=== PATIENT | male | born 1975 | race Caucasian/White ===

== ENCOUNTER 2019-03-15 18:44 | Emergency (ER) | payer MEDICAID, SELFPAY ==
--- NOTE | ~2019-03-15 | XR_ITS ---
EXAMINATION: XR lumbar spine 2-3V EXAM DATE: 03/15/2019 20:25 INDICATION: Left-sided low back pain. TECHNIQUE: Lumber spine frontal, lateral, lateral L5-S1 projections for interpretation. There is no prior study for comparison. FINDINGS: Straightening of normal lumbar lordosis could indicate muscle spasm. The vertebral bodies are aligned in the AP dimension. Vertebral body and disc heights are well-maintained. There is mild lumbar facet arthropathy. Sacrum, sacroiliac joints, sacral arcuate lines are intact. Paraspinal sof t tissue is unremarkable. IMPRESSION: 1. Lumbar straightening, possible muscular spasm. 2. Mild facet arthropathy. Reviewed, dictated and finalized at location A. ISTICAL TYPIST
[2019-03-15 19:09] VITALS: BP 127/94; PULSE 107; RESP 18; TEMP 37.9; O2SAT 98
--- NOTE | 2019-03-15 20:00 | ED_ITS ---
I attest that this documentation has been prepared under the direction and in the presence of Marla Starr MD. Sonia Hirsch Scribe 03/15/19;20:00 HPI - General Adult General Chief complaint: Back Pain/Injury Stated complaint: BACK PAIN Time Seen by Provider: 03/15/19 19:58 Related Data Allergies Allergy/AdvReac Type Severity Reaction Status Date / Time penicillin V Allergy Mild Rash Verified 03/15/19 19:14 fentanyl AdvReac Unknown Unknown Verified 03/15/19 19:14 Course Vital Signs Vital signs: Vital Signs Temperature 37.9 C H 03/15/19 19:09 Pulse Rate 107 H 03/15/19 19:09 Respiratory Rate 18 03/15/19 19:09 Blood Pressure 127/94 H 03/15/19 19:09 Pulse Oximetry 98 03/15/19 19:09 Temperature 37.9 C H 03/15/19 19:09 Pulse Rate 107 H 03/15/19 19:09 Respiratory Rate 18 03/15/19 19:09 Blood Pressure 127/94 H 03/15/19 19:09 Pulse Oximetry 98 03/15/19 19:09 Medical Decision Making Vital Signs Vital Signs: Vital Signs Temperature 37.9 C H 03/15/19 19:09 Pulse Rate 107 H 03/15/19 19:09 Respiratory Rate 18 03/15/19 19:09 Blood Pressure 127/94 H 03/15/19 19:09 Pulse Oximetry 98 03/15/19 19:09 Temperature 37.9 C H 03/15/19 19:09 Pulse Rate 107 H 03/15/19 19:09 Respiratory Rate 18 03/15/19 19:09 Blood Pressure 127/94 H 03/15/19 19:09 Pulse Oximetry 98 03/15/19 19:09
--- NOTE | 2019-03-15 20:03 | ED.BACK ---
HPI - Back Pain/Injury General Chief Complaint: Back Pain/Injury Stated Complaint: BACK PAIN Time Seen by Provider: 03/15/19 19:58 Source: patient Mode of arrival: ambulatory Limitations: no limitations History of Present Illness HPI Narrative: The pt is a 43 y/o male who presents to the ED with c/o lower back pain that began 2 days ago. The pt states that he was lifting a fridge 2 days ago and hurt his lower back. He went home after the incident and put heat on the injury. He has been having trouble walking and standing up and neither the heat thwerapy nor Tylenol has relieved his sx. His back pain is described as a dull throbbing pain with shooters into his lt leg. It is rated an 8/10 and radiates to his lt hip, lt thigh, and lt knee. His pain is worsened with coughing or movement. The pt denies dysuria or constipation. He has been shuffling and using a cane to ambulate. MD elicited complaint: back pain Onset (ago): day(s) (2) Quality: other (dull throbbing with shooters into lt leg) Location: lumbar spine Radiation: other (lt hip, lt thigh, lt knee) Exacerbating factors: movement and other (coughing) Relieving factors: none Context: while lifting Associated symptoms: denies other symptoms Related Data Allergies Allergy/AdvReac Type Severity Reaction Status Date / Time penicillin V Allergy Mild Rash Verified 03/15/19 19:14 fentanyl AdvReac Unknown Unknown Verified 03/15/19 19:14 Review of Systems Review of Systems: All systems reviewed & are unremarkable except as noted in HPI and below Gastrointestinal: Gastrointestinal: Denies constipation Genitourinary: Genitourinary: Denies dysuria Musculoskeletal: Musculoskeletal: Reports back pain (lower) [facility] Past Medical History Medical History (Updated 03/16/19 @ 14:20 by Marla Starr MD) Angina at rest Anxiety Back pain Salivary gland calculi lt, with removal of gland Slipped intervertebral disc Varices, scrotum Surgical History Surgical History (Updated 03/15/19 @ 20:18 by Sonia Hirsch) History of mandibular surgery Hx of appendectomy Social History Social History (Updated 03/15/19 @ 20:18 by Sonia Hirsch) Smoking status: Former smoker Tobacco type: e-cigarettes Additional smoking assessment comments: Quit smoking cigarettes 2 years ago and now smokes a vape Exam Const: General: no acute distress and well developed Orientation/consciousness: oriented to person, oriented to place, oriented to time and patient oriented x3 Other: difficulty with ambulation due to pain HENMT: Head: normocephalic Ears: external ears normal General nose exam: Normal external nose present Eyes: General: appearance normal, both eyes and all related structures Conjunctivae: conjunctivae normal Neck: Neck: normal visual inspection and full ROM Chest: Chest palpation & inspection: normal inspection of the chest and no tenderness Resp: Effort & Inspection: normal respiratory effort Auscultation: clear to auscultation bilaterally Cardio: Rate: regular rate Rhythm: regular rhythm GI: GI Palp: No abdominal tenderness and Yes Soft to palpation Skin: General skin exam: normal color and turgor normal Neuro: General: oriented to person, oriented to place, oriented to time and patient oriented x3 Cognition (Neuro): normal cognition Extrem: General: normal to inspection, full ROM and no pedal edema Psych: Appearance: grossly normal Mental Status: mental status grossly normal Affect: normal affect Course Vital Signs Vital signs: Vital Signs Temperature 37.9 C H 03/15/19 19:09 Pulse Rate 107 H 03/15/19 19:09 Respiratory Rate 18 03/15/19 19:09 Blood Pressure 127/94 H 03/15/19 19:09 Pulse Oximetry 98 03/15/19 19:09 Temperature 37.9 C H 03/15/19 19:09 Pulse Rate 90 03/15/19 22:05 Respiratory Rate 20 03/15/19 22:05 Blood Pressure 136/88 03/15/19 22:05 Pulse Oximetry 99 03/15/19 22:05 MDM - Back Pain/Injury
[2019-03-15] MEDS: CYCLOBENZAPRINE HCL 10 MG TABLET PO (20:34)
[2019-03-15 20:59] LABS: Basophils Absolute Auto 0.1 K/mm3 (0.0-0.1); Basophils Percent Auto 1.2 % (0.2-1.2); Eosinophils Absolute Auto 0.1 K/mm3 (0-0.3); Eosinophils Percent Auto 1.2 % (0-4.4); Hematocrit 46.3 % (42.0-52.0); Hemoglobin 15.5 g/dL (14.0-18.0); Immature Granulocyte Absolute 0.02 K/mm3 (0.00-0.031); Immature Granulocyte Percent A 0.2 % (0-0.5); Lymphocytes Absolute Auto 2.18 K/mm3 (0.9-3.2); Lymphocytes Percent Auto 24.3 % (18.3-44.2); Mean Corpuscular HGB Conc 33.5 g/dl (32-36); Mean Corpuscular Hemoglobin 29.3 pg (26-34); Mean Corpuscular Volume 87.5 fl (80-100); Mean Platelet Volume 10.8 fl (7.4-10.4); Monocytes Absolute Auto 0.7 K/mm3 (0.1-0.6); Monocytes Percent Auto 8.1 % (2.6-8.5); Neutrophils Absolute Auto 5.8 K/mm3 (1.3-6.7); Platelet Count Result 322 k/mm3 (150-375); Red Blood Count 5.29 M/mm3 (4.6-6.20); Red Cell Distribution Width 12.6 % (11.5-14.5)
[2019-03-15 21:00] LABS: Add Urine Microscopic? NO; Appearance Urine Clear (Clear); Bilirubin Urine Negative (Negative); Blood Urine Negative (Negative); Color Urine Yellow (Yellow); Glucose Urine UA Negative (Negative); Ketones Urine Negative (Negative); Leukocyte Esterase Ur Negative LEU/UL (Negative); Nitrate Urine Negative (Negative); Protein Urine Negative (Negative); Specific Grav Ur 1.023 (1.001-1.035); Urobilinogen Urine Negative mg/dL (<2.0)
[2019-03-15 21:11] LABS: Blood Urea Nitrogen 21 mg/dL (9-20); CRP 0.8 mg/dL (<1.0); Calcium 10.1 mg/dL (8.4-10.2); Carbon Dioxide 25 mmol/L (22-30); Chloride 100 mmol/L (98-107); Estimated CRCL calculation 82 ml/min; Estimated Glomerular Filt Rate > 60; Glucose 90 mg/dL (75-110); Potassium 3.8 mmol/L (3.4-5.0); Sodium 137 mmol/L (137-145)
[2019-03-15 21:27] LABS: Erythrocyte Sedimentation Rate 15 mm/hr (0-20)
[2019-03-15 21:51] VITALS: BP 143/89; PULSE 74; RESP 15; O2SAT 95
[2019-03-15 22:05] VITALS: BP 136/88; PULSE 90; RESP 20; O2SAT 99
== END 2019-03-15 22:05 | disposition home or self-care (01) ==
PROVIDERS: Emergency Provider Emergency Medicine; PCP Family Medicine
DX: M54.42 Lumbago with sciatica, left side (principal); F17.290 Nicotine dependence, other tobacco product, uncomplicated; X50.9XXA Other and unspecified overexertion or strenuous movements or postures, initial encounter
CPT/HCPCS: 36415; 72100; 80048; 81003; 85025; 85652; 86140; 99283; A9270

== ENCOUNTER 2019-03-30 15:06 | Outpatient (CLI) | payer MEDICAID, SELFPAY ==
--- NOTE | ~2019-03-30 | CT_ITS ---
EXAMINATION: CT sinus wo con DATE: 03/30/2019 15:26 INDICATION: Chronic congestion. Chronic sinusitis. TECHNIQUE: Computed tomography (CT) of the paranasal sinuses was performed without contrast. Iterativ e reconstruction technique was employed. Exam dose: 236.84 mGy-cm total exam DLP. COMPARISON: None FINDINGS: There is leftward bowing of the nasal septum. There is right interlamellar cell and vee bullosa of middle nasal turbinate. There is left middle nasal turbinate interlamellar cell. The nasal turbinates are prominent in size bilaterally. The ostiomeatal units are patent bilaterally. The paranasal sinuses are normally developed and aerated. There is minimal mucoperiosteal thickening along the anterolateral aspect of the right maxillary sinus. No fluid levels or mass densities. The mastoid air cells are normally developed and aerated bilaterally. Bilateral middle and inner ear normal apparatus. IMPRESSION: Leftward bowing of nasal septum Vee bullosa and interlamellar cell of right middle nasal turbinate Interlamellar cell of left nasal turbinate Bilateral turbinate soft tissue swelling Minimal mucoperiosteal thickening of the right maxillary sinus; the paranasal sinuses, ostiomeatal un its and mastoid air cells otherwise are normal Reviewed, dictated and finalized at Location A. Reviewed, dictated and finalized at location B. DCAST CHECKER IMPRESSION: Leftward bowing of nasal septum Vee bullosa and interlamellar cell of right middle nasal turbinate Interlamellar cell of left nasal turbinate Bilateral turbinate soft tissue swelling Minimal mucoperiosteal thickening of the right maxillary sinus; the paranasal s inuses, ostiomeatal units and mastoid air cells otherwise are normal
== END 2019-03-30 15:07 | disposition home or self-care (01) ==
PROVIDERS: PCP Family Medicine; Visit Provider Otolaryngology
DX: J32.9 Chronic sinusitis, unspecified (principal); J34.2 Deviated nasal septum
CPT/HCPCS: 70486

== ENCOUNTER 2019-03-31 08:32 | Outpatient (CLI) | payer MEDICAID, SELFPAY | END 2019-03-31 08:33 | disposition home or self-care (01) | PROVIDERS: PCP Family Medicine; Referring Provider Otolaryngology; Visit Provider Otolaryngology | DX: H90.3 Sensorineural hearing loss, bilateral (principal) | CPT/HCPCS: 92557; 92567 ==

== ENCOUNTER 2019-04-17 16:11 | Outpatient (CLI) | payer MEDICAID, SELFPAY ==
--- NOTE | ~2019-04-17 | MR_ITS ---
EXAMINATION: MR IAC wo/w con DATE: 04/17/2019 17:23 INDICATION: Asymmetric right-sided hearing loss. TECHNIQUE: Magnetic resonance imaging (MRI) of the brain, brainstem, and internal auditory canals was performed without and with 15 mL MultiHance intravenous contrast. Sequences included sagittal and ax ial T1-weighted FSE, axial diffusion-weighted FS EPI, axial T2*-weighted GRE, axial T2-weighted FLAIR Propeller, axial T2-weighted Propeller, small sqrby-fx-ghqc coronal FIESTA, small kgbho-kf-wjhq sonali nal T1-weighted FSE, and small omjku-tv-yesv axial T1-weighted SPGR. Postcontrast sequences included axial T1-weighted FSE, small cmjcy-pn-nhpc coronal T1-weighted FSE, and small bbeuu-ns-sqke axial T1- weighted SPGR. Apparent diffusion coefficient (ADC) maps were created. COMPARISON: Sinuses CT 03/30/2019 FINDINGS: There is no intracranial hemorrhage, acute infarction, or abnormal intracranial mass lesion . The ventricles are normal in size. The internal auditory canals and inner and middle ears are giselle l. The mastoid air cells are normal. The paranasal sinuses are clear. The orbits are normal. IMPRESSION: 1. Normal brain. Reviewed, dictated and finalized at location A. TRICIAN CHIEF IMPRESSION: 1. Normal brain.
[2019-04-17 16:50] LABS: Blood Urea Nitrogen 13 mg/dL (8-26); Estimated Glomerular Filt Rate > 60
== END 2019-04-17 16:12 | disposition home or self-care (01) ==
PROVIDERS: PCP Family Medicine; Visit Provider Otolaryngology
DX: H91.91 Unspecified hearing loss, right ear (principal)
CPT/HCPCS: 70553; A9577

== ENCOUNTER 2019-05-18 13:00 | Outpatient (RCR) | payer OTHER, SELFPAY | END 2019-05-18 23:59 | disposition home or self-care (01) | LOC: ANHAUDIO 13:00 | PROVIDERS: PCP Family Medicine; Visit Provider Otolaryngology | DX: Z46.1 Encounter for fitting and adjustment of hearing aid (principal) | CPT/HCPCS: V5221; V5240 ==

== ENCOUNTER 2019-12-18 07:56 | Outpatient (RCR) | payer OTHER, SELFPAY | END 2019-12-18 23:59 | disposition home or self-care (01) | LOC: ANHAUDIO 07:56 | PROVIDERS: PCP Family Medicine; Visit Provider Family Medicine | DX: Z46.1 Encounter for fitting and adjustment of hearing aid (principal) | CPT/HCPCS: 99199 ==

== ENCOUNTER 2020-04-24 13:51 | Outpatient (RCR) | payer OTHER, SELFPAY | END 2020-04-24 23:59 | disposition home or self-care (01) | LOC: ANHAUDIO 13:51 | PROVIDERS: PCP Family Medicine; Referring Provider Family Medicine; Visit Provider Family Medicine | DX: Z46.1 Encounter for fitting and adjustment of hearing aid (principal) | CPT/HCPCS: 99199 ==

== ENCOUNTER 2020-08-06 16:00 | Outpatient (RCR) | payer OTHER, SELFPAY ==
--- NOTE | 2020-07-17 17:23 | PTOPEVAL ---
PHYSICAL THERAPY EVALUATION AND PLAN OF CARE Thank you for referring Johnnie Sneed to [facility].? The patient is scheduled to be seen for therapy?1x/week for 4 weeks. Please review, sign, date and return this plan of care FREDA. I agree with and certify that the following plan of care is medically necessary. 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 States he cannot sit without pain. Pain starts in the low back, goes down the left leg, and into the left foot. States that the last 3 toes of his left foot have been numb for 2.5 months. He states that he stopped doing a lot of movements and activities and feels weaker and wants to be stronger again in order to improve his function. when he sits, there is increased pressure in the left buttcheek and sends shooting pain down the left. Also notes that if he leans backward and then shifts left, the same pain happens. Prior Level of Function Activity Level (Last 3 Months) Occupation [employer] Self Report Pain Assessment Left Spine, Lumbar Reported Pain Level 4 Pain Description Pressure,Stabbing Pain Radiation Left Leg Pain Frequency Chronic,Continuous Lowest Pain Intensity 3 Greatest Pain Intensity 7 Pain Aggravating Factors Lifting,Sitting,Walking,Weight Bearing/Standing Pain Score Pain Score 4: Self Report Interventions Used Interventions Used By Clinicians Exercise,Joint Mobilization Pain Relief Interventions Used By Standing Patient Cervical and Lumbar ROM Lumbar ROM Lumbar Flexion (0-90) 25 Query Text:Active in Degrees Lumbar Flexion Active Floor Query Text:Hands to: Lumbar Extension (0-40) 18 Query Text:Active in Degrees Lateral Flexion
--- NOTE | 2020-07-30 17:55 | PCPTNOTE ---
Patient did not show up for scheduled appointment this date. Called and left a message to remind him of his next appointment.
--- NOTE | 2020-08-14 07:23 | PCPTNOTE ---
Patient called & cancelled scheduled appointment this date due to car problems.
--- NOTE | 2020-08-20 08:06 | PCPTNOTE ---
Patient did not show up for scheduled appointment this date. Called and left voicemail.
--- NOTE | 2020-08-28 14:22 | PCPTNOTE ---
PHYSICAL THERAPY DISCHARGE NOTE Attending Provider: Sung Estevez, CYLINDER PRESS OPERATOR APPRENTICE Patient:Johnnie Sneed Date of :1975 Patient has not returned for any further treatments since 08/06/2020, therefore will be discharged at this time. Patient?s initial visit was on 07/17/2020.. The goals have been partially met. [facility]. Please review, sign, date and return this discharge summary FREDA. I have been updated about the patient's current status and I agree with discharge from the above service at this time. Referring Physician Date
== END 2020-10-01 13:53 | disposition home or self-care (01) ==
LOC: ANHPT 16:00
PROVIDERS: PCP Family Medicine; Visit Provider Nurse Practitioner Family
DX: M54.41 Lumbago with sciatica, right side (principal)
CPT/HCPCS: 97110; 97140; 97161

== ENCOUNTER 2021-07-02 10:30 | Outpatient (RCR) | payer OTHER, SELFPAY | END 2021-07-02 23:59 | disposition home or self-care (01) | LOC: ANHAUDIO 10:30 | PROVIDERS: PCP Family Medicine; Visit Provider Family Medicine | DX: Z46.1 Encounter for fitting and adjustment of hearing aid (principal) | CPT/HCPCS: 99199 ==

== ENCOUNTER 2021-10-07 08:06 | Outpatient (CLI) | payer OTHER, SELFPAY ==
--- NOTE | ~2021-10-07 | US_ITS ---
US arterial ankle brachial ind INDICATION: Lower extremity cramps and spasms. History of smoking. Numbness. TECHNIQUE: Segmental pressures and plethysmographic and Doppler waveforms of the brachial and lower e xtremity arteries were obtained. COMPARISON: None. FINDINGS: Right and left brachial artery pressures of 134 mm Hg and 148 mm Hg, respectively, are concordant (no rmal difference <= 30 mmHg). The right ankle-brachial index (TERRENCE) is 1.11 (normal >= 0.9-1.0). The right great toe-brachial index (TBI) is 0.65 (normal >= 0.60). The left TERRENCE is 1.1. The left TBI is 0.86. IMPRESSION: 1. Normal bilateral ankle and toe brachial indices. Reviewed, dictated and finalized at location B.
== END 2021-10-07 08:07 | disposition home or self-care (01) ==
LOC: ANHIMG 08:09
PROVIDERS: PCP Family Medicine; Visit Provider Physician Assistant
DX: R25.2 Cramp and spasm (principal)
CPT/HCPCS: 93922

== ENCOUNTER 2021-11-24 14:42 | Outpatient (CLI) | payer OTHER, SELFPAY ==
--- NOTE | ~2021-11-24 | XR_ITS ---
XR lumbar spine 2-3V 11/24/2021 15:13 Indication: Chronic low back pain. Procedure: 3 views lumbar spine Comparison: 03/15/2019 Findings: There is moderate disc narrowing at L5-S1. There is mild disc narrowing at L4-5. Mild endpl ate degenerative changes at L5. No acute fracture or traumatic malalignment. Pedicles intact. Sacral foramen are symmetric. Normal lumbar lordosis. Impression: 1: Mild-moderate lower lumbar spondylosis. Degenerative changes at L4-5 and L5-S1 have progressed sin ce prior examination. Reviewed, dictated and finalized at location A. Impression: 1: Mild-moderate lower lumbar spondylosis. Degenerative changes at L4-5 and L5- S1 have progressed since prior examination.
== END 2021-11-24 14:43 | disposition home or self-care (01) ==
LOC: ANHIMG 14:48
PROVIDERS: PCP Family Medicine; Visit Provider Physician Assistant
DX: M47.817 Spondylosis without myelopathy or radiculopathy, lumbosacral region (principal)
CPT/HCPCS: 72100

== ENCOUNTER 2022-04-06 13:45 | Outpatient (RCR) | payer OTHER, SELFPAY ==
--- NOTE | 2022-02-10 14:41 | PTOPEVAL1 ---
Assessment and note entered by Allan Gibson, PT Evaluation Information Assessment Status Evaluation Diagnosis low back pain Onset chronic Subjective Information Johnnie reports he was going to therapy for low back pain with minimal success and was recommended to get an MRI, but his insurance will not do an MRI until her does 6 weeks of physical therapy. He has DDD from L4 to S1 and had a toradol shot a couple of weeks ago. His pain is centralized with no radiating symptoms to report. His pain increases with straightening up after being in flexion. 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 Clinical summary Johnnie is a 46 year old male coming into the clinic for low back pain. He has core weakness and tightness in his low back. Physical therapy should help back with general strengthening and stretching to improve alignment and modalities and manual therapy to improve pain rating. These treatments will address the objective and functional deficits as defined above. The patient will be advanced safely and appropriately in order for the patient to progress towards his/her prior level of function. Additional exercises will be introduced and as well as a comprehensive home exercise program upon discharge, if needed, ?to ensure carryover of functional gains achieved in the clinic. This treatment plan has been reviewed and agreement upon by the patient.
--- NOTE | 2022-03-11 17:13 | PTOPREEVAL ---
Assessment and note entered by Allan Gibson, PT Evaluation Information Assessment Status Re-evaluation Diagnosis low back pain Onset Chronic Subjective Information Johnnie reports that the pain is very severe today and he cannot do anything. Reports it was all he could do just to come in today hoping to get relief from modalities. Clinical Summary Johnnie is a 46 year old male coming into the clinic with a diagnosis of low back pain. He has attended 7 visits without much improvement in pain or functional mobility. Will continue to work with patient, but may need to start thinking about imaging or referral to a back doctor These treatments will address the objective and functional deficits as defined above. The patient will be advanced safely and appropriately in order for the patient to progress towards his/her prior level of function. Additional exercises will be introduced and as well as a comprehensive home exercise program upon discharge, if needed, ?to ensure carryover of functional gains achieved in the clinic. This treatment plan has been reviewed and agreement upon by the patient.
--- NOTE | 2022-04-06 14:18 | PTOPDC ---
Assessment and note entered by Allan Gibson, PT Evaluation Information Assessment Status Discharge Diagnosis low back pain Onset Chronic Subjective Information Patient reports that is he avoids moving a certain way he has no pain, but it is just not feasible at work to things that way. He knows the exercises are helping, but would like to see a back surgeon for other options so the back pain is just not treated with a BAND-AID . Reported Pain Level Pain Score 6: Self Report Assessment PT Clinical Summary Johnnie is a 46 year old male coming into the clinic for low back pain. Patient has met his range of motion and strengthening goals, but still having moderate to severe pain with movements at work and at home. He has attended 11 sessions and at this time I believe it will be prudent for patient to possibly see a back specialist or having imaging to assess the soft tissue of the low back. Discharged from skilled physical therapy at this time. Plan of Care PT Services Indicated No Treatment Frequency and discharged from skilled physical therapy. Duration
== END 2022-04-06 15:14 | disposition home or self-care (01) ==
LOC: ANHPT 13:45
PROVIDERS: PCP Family Medicine; Visit Provider Physician Assistant
DX: M51.36 Other intervertebral disc degeneration, lumbar region (principal)
CPT/HCPCS: 97014; 97110; 97140; 97161; 97530; G0283

== ENCOUNTER 2022-09-02 12:40 | Outpatient (CLI) | payer OTHER, SELFPAY ==
--- NOTE | ~2022-09-02 | MR_ITS ---
MRI of the lumbar spine Clinical History: Degenerative disc disease Technique: Axial T2-weighted images, and sagittal T1-weighted, T2-weighted, and and T2 fat-sat images were acquired. Findings: There is no fracture identified. Minimal grade 1 retrolisthesis of L5 over S1 noted. No karen picious bone marrow signal abnormality seen. At L1-L2 and L2-L3, there is mild facet arthropathy. No disc bulge or herniation at these levels. No spinal canal stenosis or neural foraminal narrowing is also. At L3-L4, there is mild degenerative disc narrowing with minimal disc bulge and moderate facet arthro silvestre. No central canal stenosis or neural foraminal narrowing. At L4-L5, there is mild degenerative disc narrowing. There is mild disc bulge with mild facet arthrop athy. No central canal stenosis. There is mild bilateral neural foraminal narrowing. At L5-S1, there is advanced degenerative disc narrowing with mild disc bulge/protrusion centrally. Th ere is mild to moderate facet arthropathy. No spinal canal stenosis. There is mild bilateral neural f oraminal narrowing. Paravertebral soft tissues are unremarkable. Impression: Mild degenerative spondylosis, as detailed above. Minimal grade 1 retrolisthesis of L5 over S1. Reviewed, dictated and finalized at location . Impression: Mild degenerative spondylosis, as detailed above. Minimal grade 1 retrolisthesis of L5 over S1.
== END 2022-09-02 12:41 | disposition home or self-care (01) ==
LOC: ANHIMG 12:42
PROVIDERS: PCP Family Medicine; Visit Provider Physician Assistant
DX: M51.36 Other intervertebral disc degeneration, lumbar region (principal); M47.817 Spondylosis without myelopathy or radiculopathy, lumbosacral region
CPT/HCPCS: 72148

== ENCOUNTER 2022-12-15 07:54 | Outpatient (CLI) | payer OTHER, SELFPAY | END 2022-12-15 07:55 | disposition home or self-care (01) | LOC: ANHAUDIO 07:54 | PROVIDERS: PCP Family Medicine; Visit Provider Nurse Practitioner Family | DX: H90.3 Sensorineural hearing loss, bilateral (principal) | CPT/HCPCS: 92557; 92567 ==